=== PATIENT | female | born 1985 | race Caucasian/White ===

== ENCOUNTER 2017-07-14 11:41 | Inpatient (IN) | payer OTHER ==
[~2017-07-14] VITALS: Ht 170.1 cm; Wt 71.8 kg
[2017-07-14 13:30] VITALS: BP 124/65
[2017-07-14 13:38] LABS: BASO % 0.3 % (0.0-1.0); EOS # 0.1 10*3/uL (0.0-0.4); EOS % 2.3 % (1.0-4.0); HEMATOCRIT 32.2 % (37.0-47.0); HEMOGLOBIN 10.3 g/dl (12.0-16.0); LYMPH % 32.4 % (27.0-41.0); MEAN CORPUSCULAR HGB 28.1 pg (27.0-31.0); MEAN PLATELET VOLUME 10.4 fl (9.6-12.3); MONO # 0.6 10*3/uL (0.1-1.0); MONO % 9.2 % (3.0-9.0); NEUT # 3.4 10*3/uL (2.3-7.9); NEUT % 55.6 % (47.0-73.0); PLATELET COUNT AUTOMATED 194 10*3/uL (130-400); RED BLOOD COUNT 3.66 10*6/uL (4.10-5.10); RED CELL DISTRI WIDTH 15.2 % (0-14.5); WHITE BLOOD COUNT 6.2 10*3/uL (4.8-10.8)
[2017-07-14 13:46] LABS: INTERNATIONAL NORM RATIO 0.9 (2.0-3.5)
[2017-07-14 13:52] LABS: BILIRUBIN NEGATIVE (NEGATIVE); BLOOD NEGATIVE (NEGATIVE); CLARITY SL CLOUDY (CLEAR); COLOR YELLOW (YELLOW); GLUCOSE NEGATIVE (NEGATIVE); KETONE TRACE (NEGATIVE); LEUKO ESTERASE NEGATIVE (NEGATIVE); NITRITE NEGATIVE (NEGATIVE); SPECIFIC GRAVITY 1.025 (1.005-1.030)
[2017-07-14 13:56] LABS: ALBUMIN 3.4 gm/dl (3.1-4.5); ALKALINE PHOSPHATASE 82 U/L (45-117); BUN 17 mg/dl (7-24); CHLORIDE 106 mmol/L (98-107); CREATININE 1.01 mg/dL (0.55-1.02); SGOT/AST 15 IU/L (3-35); SGPT/ALT 15 U/L (12-78); SODIUM 139 mmol/L (136-145); TOTAL PROTEIN 7.7 gm/dL (6.4-8.2)
[2017-07-14 13:59] LABS: ETHYL ALCOHOL < 3.0 mg/dl (<3)
[2017-07-14 14:01] LABS: URINE AMPHETAMINES < 1000 (1000ng/ml); URINE BARBITURATES < 200 (200ng/ml); URINE BENZODIAZEPINES < 200 (200ng/ml); URINE CANNABINOIDS (THC) > 50 (50ng/ml); URINE COCAINE > 300 (300ng/ml); URINE METHADONE < 300 (300ng/ml); URINE OPIATES < 300 (300ng/ml)
[2017-07-14 14:05] LABS: URINE PHENCYCLIDINE < 25 (25ng/ml)
[2017-07-14 14:19] LABS: CALCIUM OXALATE CRYSTALS 2+
[2017-07-14 16:00] VITALS: BP 128/66
[2017-07-14 20:00] VITALS: BP 119/67
[2017-07-15 00:08] VITALS: BP 116/71
[2017-07-15 08:00] VITALS: BP 112/69
[2017-07-15 16:00] VITALS: BP 110/66
[2017-07-15 20:00] VITALS: BP 107/65
[2017-07-16] VITALS: BP 120/57
[2017-07-16 16:00] VITALS: BP 113/74
[2017-07-16 20:00] VITALS: BP 114/55
[2017-07-17] VITALS: BP 120/69
[2017-07-17 06:19] LABS: BASO % 0.2 % (0.0-1.0); EOS # 0.2 10*3/uL (0.0-0.4); EOS % 3.4 % (1.0-4.0); HEMATOCRIT 30.9 % (37.0-47.0); HEMOGLOBIN 9.7 g/dl (12.0-16.0); LYMPH # 1.8 10*3/uL (1.3-4.4); LYMPH % 30.5 % (27.0-41.0); MEAN CELL VOLUME 88.8 fl (81.0-99.0); MEAN CORPUSCULAR HGB 27.9 pg (27.0-31.0); MEAN CORPUSCULAR HGB CONC 31.4 g/dl (33.0-37.0); MEAN PLATELET VOLUME 10.7 fl (9.6-12.3); MONO # 0.7 10*3/uL (0.1-1.0); MONO % 10.9 % (3.0-9.0); NEUT # 3.3 10*3/uL (2.3-7.9); NEUT % 54.7 % (47.0-73.0); PLATELET COUNT AUTOMATED 163 10*3/uL (130-400); RED BLOOD COUNT 3.48 10*6/uL (4.10-5.10); RED CELL DISTRI WIDTH 14.9 % (0-14.5)
[2017-07-17 06:28] LABS: CREATININE 0.76 mg/dL (0.55-1.02)
[2017-07-17 08:00] VITALS: BP 118/62
[2017-07-17 12:00] VITALS: BP 118/61
[2017-07-17 16:00] VITALS: BP 110/52
[2017-07-17 20:00] VITALS: BP 123/67
[2017-07-18] VITALS: BP 126/79
[2017-07-18 06:33] LABS: HEMATOCRIT 30.9 % (37.0-47.0); HEMOGLOBIN 9.7 g/dl (12.0-16.0); MEAN CORPUSCULAR HGB 27.6 pg (27.0-31.0); MEAN CORPUSCULAR HGB CONC 31.4 g/dl (33.0-37.0); MEAN PLATELET VOLUME 10.7 fl (9.6-12.3); PLATELET COUNT AUTOMATED 186 10*3/uL (130-400); RED BLOOD COUNT 3.51 10*6/uL (4.10-5.10); RED CELL DISTRI WIDTH 14.7 % (0-14.5); WHITE BLOOD COUNT 5.1 10*3/uL (4.8-10.8)
[2017-07-18 07:19] LABS: PLATELET SUFFICIENCY NORMAL (NORMAL); TOTAL CELLS COUNTED 100 #CELLS
[2017-07-18 08:00] VITALS: BP 96/60
[2017-07-18] MEDS ORDERED: ROPINIROLE HYD0.5 MG PO (12:21)
[2017-07-18] MEDS ORDERED: TRAZODONE50 MG PO (12:21)
[2017-07-18] MEDS ORDERED: CEFUROXIME AXE250 MG PO (12:21)
[2017-07-18] MEDS ORDERED: ATARAX,VISTARIL50 MG PO (12:21)
== END 2017-07-18 13:21 | disposition home or self-care (01) | DRG 897 ==
LOC: 4E 11:41
PROVIDERS: Emergency Medicine; Student in an Organized Health Care Education/Training Program
DX: F11.23 Opioid dependence with withdrawal (principal); G35 Multiple sclerosis; D64.9 Anemia, unspecified; F14.10 Cocaine abuse, uncomplicated; F15.90 Other stimulant use, unspecified, uncomplicated; F41.9 Anxiety disorder, unspecified; G40.909 Epilepsy, unspecified, not intractable, without status epilepticus; G25.81 Restless legs syndrome; F10.10 Alcohol abuse, uncomplicated; F12.10 Cannabis abuse, uncomplicated; R00.0 Tachycardia, unspecified; F13.10 Sedative, hypnotic or anxiolytic abuse, uncomplicated; J02.0 Streptococcal pharyngitis; Z88.1 Allergy status to other antibiotic agents; Z88.0 Allergy status to penicillin; Z72.0 Tobacco use; Z88.8 Allergy status to other drugs, medicaments and biological substances; Z98.51 Tubal ligation status; Z79.899 Other long term (current) drug therapy; Z83.3 Family history of diabetes mellitus; Z88.5 Allergy status to narcotic agent